=== PATIENT | male | born 1985 | race Two or more races ===

== ENCOUNTER 2023-11-03 12:09 | Emergency (ER) | payer MEDICAID ==
[~2023-11-03] VITALS: Ht 177.8 cm; Wt 93.4 kg
[2023-11-03] MEDS ORDERED: LIDOCAINE 1% INJ 50 ML MDV IJ ONE (13:15)
[2023-11-03] MEDS ORDERED: TDAP [DIPH/PERTUSSIS/TET] 0.5 ML VIAL IM ONE (13:16)
[2023-11-03] MEDS ORDERED: oxyCODONE/APAP (5/325 MG) 1 UDTAB TABLET ONE (13:16)
[2023-11-03] MEDS: oxyCODONE/APAP (5/325 MG) 1 UDTAB TABLET PO ONE (13:19)
[2023-11-03] MEDS: LIDOCAINE 1% INJ 50 ML MDV IJ ONE (13:20)
[2023-11-03] MEDS: TDAP [DIPH/PERTUSSIS/TET] 0.5 ML VIAL IM ONE (13:41)
[2023-11-03] MEDS ORDERED: SULF1TAB48 PO (15:38)
[2023-11-03] MEDS ORDERED: CIPR500T5 PO (15:38)
[2023-11-03] MEDS ORDERED: BACI/NEOM/POLY B OINT PKT 1 UDPKT PACKET ONE (15:42)
[2023-11-03] MEDS ORDERED: CIPROFLOXACIN HCL 500 MG TABLET ONE (15:43)
[2023-11-03] MEDS ORDERED: SULFAMETH/TRIMETH 800/160 MG 1 UDTAB TABLET ONE (15:43)
[2023-11-03] MEDS: SULFAMETH/TRIMETH 800/160 MG 1 UDTAB TABLET PO ONE (15:46)
[2023-11-03] MEDS: CIPROFLOXACIN HCL 250 MG TABLET PO ONE (15:46)
[2023-11-03] MEDS: BACI/NEOM/POLY B OINT PKT 1 UDPKT PACKET TP ONE (15:47)
[2023-11-03 17:10] VITALS: BP 131/81; TEMP 98.3; O2SAT 98
== END 2023-11-03 17:10 | disposition home or self-care (01) ==
LOC: ER 12:19
DX: S91.142A Puncture wound with foreign body of left great toe without damage to nail, initial encounter (principal); M79.675 Pain in left toe(s); I10 Essential (primary) hypertension; W60.XXXA Contact with nonvenomous plant thorns and spines and sharp leaves, initial encounter; Y93.01 Activity, walking, marching and hiking; Y92.89 Other specified places as the place of occurrence of the external cause; Y99.8 Other external cause status
CPT/HCPCS: 99285; 90471; 90715; 73630 ×2; J3490; A6403